=== PATIENT | female | born 2000 | race Caucasian/White ===

== ENCOUNTER 2021-10-19 00:09 | Emergency (ER) | payer OTHER ==
[~2021-10-19] VITALS: Ht 162.6 cm; Wt 100.0 kg
[2021-10-19 00:12] VITALS: BP 126/76
[2021-10-19] MEDS ORDERED: IBUPROFEN 600MG TABLET PO STA (00:38)
[2021-10-19] MEDS ORDERED: IBUP-2029 PO (03:16)
== END 2021-10-19 04:42 | disposition home or self-care (01) ==
LOC: ER 00:09
DX: S93.492A Sprain of other ligament of left ankle, initial encounter (principal); M54.59 Other low back pain; W10.8XXA Fall (on) (from) other stairs and steps, initial encounter; Y93.01 Activity, walking, marching and hiking; Y92.252 Music hall as the place of occurrence of the external cause
CPT/HCPCS: 72100; 73610; 81025; 99284